=== PATIENT | male | born 1955 | race Caucasian/White ===

== ENCOUNTER → 2023-11-05 13:23 | Outpatient (REF) | payer OTHER, SELFPAY | LOC: RCS 13:23 | PROVIDERS: ATTENDING PHYSICIAN Internal Medicine Geriatric Medicine | DX: E78.01 Familial hypercholesterolemia (principal); E03.9 Hypothyroidism, unspecified; I77.9 Disorder of arteries and arterioles, unspecified; E55.9 Vitamin D deficiency, unspecified; Z13.31 Encounter for screening for depression; M25.562 Pain in left knee; R00.2 Palpitations | CPT/HCPCS: 93225; 93226 ==

== ENCOUNTER 2023-12-20 09:56 | Emergency (ER) | payer OTHER, SELFPAY ==
[2023-12-20 10:05] VITALS: BP 127/83
--- NOTE | 2023-12-20 11:14 | ED.GENMED ---
History of Present Illness
General
Chief Complaint: Heart Rate Problem
Time Seen by Provider: 12/20/23 11:12
History of Present Illness
History of Present Illness:
68-year-old male presents the emergency department for evaluation of heart palpitations and lightheadedness developing this morning. 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
unrevealing Holter monitor but is scheduled for a repeat Holter and echocardiogram in 6 days. Denies any shortness of breath or chest pain at this time. No leg swelling
Past History
Past History
ED Past Medical History: Hypercholesterolemia and Hypothyroidism
Review of Systems
Review of Systems
Allergies reviewed?: Yes
All Other Systems: ROS reviewed and negative except as documented in HPI and ROS
Phy Exam
Physical Exam
Physical Exam:
GEN: Well appearing, NAD, WDWN
HEENT: Oral mucosa moist, no scleral icterus
Cardiac: Irregular and tachycardic no murmur
Lung: No respiratory distress, no tachypnea
MSK: No gross deformity or injuries
Skin: Good color, no pallor or jaundice, no rashes
Neuro: AO x3, moves all extremities freely
Psych: Calm, cooperative
Course
Orders/Labs/Results
Orders:
Orders
12/20/23 10:08
EKG [Electrocardiogram (*1)] Urgent
Reason for Study: Palpitations
12/20/23 10:09
EKG- Treatment ONCE
12/20/23 11:20
IV Insert/Care/Rem.- Treatment PRN
12/20/23 11:26
Complete Blood Count/With Diff Urgent
Comprehensive Metabolic Panel Urgent
TSH Urgent
Comment: ADD ON
12/20/23 11:27
Add On- LAB Urgent
Tests Added?: TSH
Metoprolol [Lopressor] 5 mg IV NOW STA
12/20/23 12:22
Apixaban [Eliquis] 5 mg PO NOW STA
Metoprolol [Lopressor] 25 mg PO NOW STA
Abnormal Lab Results
12/20/23
11:26
MCH 31.9 H pg
(27.0-31.0)
Monocytes % 11.0 H %
(1.7-9.3)
Glucose 102 H mg/dl
(70-99)
12/20/23 11:26
12/20/23 11:26
Vital Signs
Initial and Last Documented VS:
Initial Vital Signs
Temp Pulse Resp BP Pulse Ox
98.2 F 72 16 127/83 97
12/20/23 10:05 12/20/23 10:05 12/20/23 10:05 12/20/23 10:05 12/20/23 10:05
Last Documented Vital Signs
Temp Pulse Resp BP Pulse Ox
98.2 F 105 18 132/93 96
12/20/23 10:05 12/20/23 12:30 12/20/23 12:30 12/20/23 12:30 12/20/23 12:15
MDM/Problems Addressed
MDM/Problems Addressed:
Given the patient's recurrent bouts of similar symptoms over the past few months I do not feel he is a suitable cardioversion candidate, 1 dose of IV metoprolol allowed for good rate control. Will discharge with outpatient cardiology follow-up on
metoprolol and anticoagulants. He is clinically stable with no signs of heart failure
Comment
Comment:
EKG independently interpreted by me shows a rapid atrial fibrillation at a rate of 123
*Critical Care Note
Total Time (30-74mins, 75-104mins- exclusive of procedures): Not Applicable
ED Attending Note
-
Portions of this chart may have been created with voice recognition software.� Occasional wrong word or��sound alike� substitutions may have occurred due to the inherent limitations of voice recognition software.
Discharge Plan
Departure
Patient Disposition: Home (Routine Discharge)
Date of Disposition: 12/20/23
Time of Disposition: 12:22
Patient with high blood pressure during this ER visit?: No
Discharge Problem:
Atrial fibrillation
Instructions: Atrial Fibrillation (DC), Taking oral medicines for blood clots
Prescriptions:
New
metoprolol tartrate 25 mg tablet
25 mg PO BID Qty: 60 0RF
Eliquis 5 mg tablet
5 mg PO BID Qty: 60 0RF
No Action
lisinopril-hydrochlorothiazide 1 EACH tablet
1 ea PO DAILY Qty: 14 0RF
Referrals:
Bartolome Conde MD [Active] -
Interventions
Interventions:
*Risk Screen - Suicide Last Done: 12/20/23 10:05
*General Assessment Last Done: 12/20/23 10:05
*Neglect/Abuse Screening Last Done: 12/20/23 10:05
ED- Fall Risk Assessment Last Done: 12/20/23 12:53
*ED COVID-19 Vaccine History Last Done: 12/20/23 12:53
*Nursing Disposition Last Done: 12/20/23 12:53
ED- Cardiac Assessment Last Done: 12/20/23 12:53
ED- Pulmonary Assessment Last Done: 12/20/23 12:53
Discharge Date and Time
Discharge Date/Time: 12/20/23 12:57
Print Language: GERMAN
[2023-12-20 11:36] LABS: % Basophils 1.2 % (0-2); % Eosinophils 1.9 % (0-6); % Immature Granulocytes 0.2 % (0-0.5); % Lymphocytes 24.9 % (20.5-51.1); % Neutrophils 60.8 % (42.2-75.2); Absolute Basophils 0.1 10^3/uL (0-0.2); Absolute Eosinophils 0.1 10^3/uL (0-0.7); Absolute Lymphocytes 1.2 10^3/uL (1.2-3.4); Absolute Monocytes 0.5 10^3/uL (0.1-0.6); Absolute Neutrophils 2.9 10^3/uL (1.4-6.5); Hematocrit 44.4 % (39.0-52.0); Hemoglobin 15.2 g/dL (13.0-18.0); Mean Corp Hgb Conc. 34.2 g/dL (33.0-37.0); Mean Corpuscular Hgb 31.9 pg (27.0-31.0); Mean Corpuscular Volume 93.1 fL (80.0-94.0); Mean Platelet Volume 9.1 fL (7.4-10.4); Nucleated Red Blood Cells % 0 % (-); Platelet Count 201 10^3/uL (130-400); Red Blood Cell Count 4.77 10^6/uL (4.70-6.10); White Blood Cell Count 4.8 10^3/uL (4.8-10.8)
[2023-12-20] MEDS: LOPRESSOR 5 MG IV (11:42)
[2023-12-20 11:44] VITALS: BP 133/80
[2023-12-20 11:53] LABS: ALT (SGPT) 32 U/L (0-50); AST (SGOT) 31 U/L (17-59); Albumin 4.2 g/dl (3.5-5.0); Alkaline Phosphatase 58 U/L (38-126); Blood Urea Nitrogen 17 mg/dl (9-20); Calcium 9.9 mg/dl (8.4-10.2); Carbon Dioxide 30 mmol/L (22-30); Chloride 104 mmol/L (98-107); Glucose 102 mg/dl (70-99); Potassium 4.8 mmol/L (3.5-5.1); Sodium 137 mmol/L (135-145); Total Bilirubin 0.8 mg/dl (0.2-1.3); eGFR > 60.00
[2023-12-20 12:00] VITALS: BP 126/87
[2023-12-20] MEDS: LOPRESSOR 25 MG PO (12:29)
[2023-12-20 12:30] VITALS: BP 132/93
[2023-12-20] MEDS: ELIQUIS 5 MG PO (12:30)
[2023-12-20 15:37] LABS: TSH 1.77 uIU/ml (0.47-4.68)
== END 2023-12-20 12:57 | disposition home or self-care (01) ==
LOC: EMR 09:56
PROVIDERS: Physician Assistant; EMERGENCY PHYSICIAN Emergency Medicine; FAMILY PHYSICIAN Internal Medicine Geriatric Medicine
DX: I48.91 Unspecified atrial fibrillation (principal); R42 Dizziness and giddiness; E78.00 Pure hypercholesterolemia, unspecified; E03.9 Hypothyroidism, unspecified
CPT/HCPCS: 99283; 96374; 80053; 84443; 85025; 93005